=== PATIENT | male | born 1960 | race Caucasian/White ===

== ENCOUNTER → 2022-06-16 | Outpatient (CLI) | payer OTHER, SELFPAY ==
[2022-06-16 12:28] LABS: Absolute Lymphocyte Count 1.59 X10^3/uL (0.83-4.51); Absolute Neutrophil Count 3.9 X10^3/uL (2.0-7.7); Basophil# 0.03 X10^3/uL; Basophil% 0.5 % (0-1); Eosinophil# 0.11 X10^3/uL; Eosinophils% 1.8 % (0-5); Hematocrit 45.1 % (40-54); Hemoglobin 15.4 g/dL (13.0-16.5); Lymphocyte # 1.59 X10^3/ul (0.83-4.51); Lymphocyte % 25.4 % (19-41); Mean Corp Hgb Conc 34.1 g/dL (32-36); Mean Corpuscular Volume 90.9 fL (80-94); Mean Platelet Vol. 10.7 fl (6.2-12.0); Monocyte# 0.59 X10^3/uL; Monocyte% 9.4 % (0-10); NRBC Flagged by Analyzer 0 % (0-5); Neutrophil # 3.92 X10^3/uL (2.7-7.7); Neutrophil % 62.6 % (47-70); Platelet Count 195 K/mm3 (150-450); RBC Distribution Width CV 12.8 % (11.6-14.6); RBC Distribution Width SD 42.5 fl (35.1-43.9); Red Blood Count 4.96 M/mm3 (4.6-6.2); White Blood Count 6.3 K/mm3 (4.4-11.0)
[2022-06-16 12:46] LABS: Erythrocyte Sedimentation Rate 11 mm/hr (0-20)
[2022-06-16 13:01] LABS: CRP < 2.90 mg/L (0.0-3.0)
== END | disposition home or self-care (01) ==
PROVIDERS: Referring Provider Specialist; Visit Provider Specialist
DX: Z96.651 Presence of right artificial knee joint (principal); T84.84XA Pain due to internal orthopedic prosthetic devices, implants and grafts, initial encounter; T84.032A Mechanical loosening of internal right knee prosthetic joint, initial encounter
CPT/HCPCS: 36415; 85025; 85652; 86140